=== PATIENT | male | born 1990 | race Two or more races ===

== ENCOUNTER 2020-03-16 02:21 | Observation (INO) | payer SELFPAY ==
[2020-03-16] MEDS ORDERED: Ondansetron 4 MG/2 ML SDV IVPUSH PRN (02:31)
[2020-03-16] MEDS: Lactated Ringers 1,000 ML IV SCH ×3 (02:35→23:40)
[2020-03-16] MEDS: HYDROmorphone 1 MG/ML Syringe IVPUSH PRN ×6 (02:40→20:04)
[2020-03-16] MEDS: Piperacillin/Tazobactam 3.375 GM in Sodium Chloride 0.9% 50 ML IV SCH ×4 (06:18→23:34)
[2020-03-16] MEDS ORDERED: Propofol 200 MG/20 ML SDV ONE (07:00)
[2020-03-16] MEDS ORDERED: Midazolam 1 MG/ML 2 ML SDV ONE (07:00)
[2020-03-16] MEDS ORDERED: fentaNYL 250 MCG/5 ML SDV ONE (07:00)
[2020-03-16] MEDS ORDERED: Glycopyrrolate 0.2 MG/ML SDV ONE (07:01)
[2020-03-16] MEDS ORDERED: Ketorolac 30 MG/ML SDV ONE (07:01)
[2020-03-16] MEDS ORDERED: Lidocaine 2% 5 ML SDV ONE (07:01)
[2020-03-16] MEDS ORDERED: Ondansetron 4 MG/2 ML SDV ONE (07:01)
[2020-03-16] MEDS ORDERED: Rocuronium Bromide 50 MG/5 ML Syringe ONE (07:01)
--- NOTE | 2020-03-16 08:37 | HP ---
DATE OF : 1990 PRIMARY CARE PHYSICIAN: None PCP HISTORY OF PRESENT ILLNESS: The patient is a pleasant 29-year-old gentleman who said that yesterday after work he started having some lower abdominal pain. This pain increased throughout the evening and migrated more to the right side. He went to his local ER in [place] for further evaluation. There he was found to have an elevated white cell count of 16. A CT scan was done that showed appendicoliths and mucosal thickening, inflammation surrounding the appendix suggestive of appendicitis. [place] then transferred patient here for laparoscopic appendectomy. The patient was placed on antibiotics. Here at [place], the patient says he is feeling okay. He says he still is having right lower abdominal pain. He said he had some slight nausea, but no emesis. He denies any fevers or chills. PAST MEDICAL HISTORY: Hypertension. CURRENT HOME MEDICATIONS: Lisinopril 10 mg p.o. daily. ALLERGIES: No known drug allergies. PAST SURGICAL HISTORY: None. FAMILY HISTORY: Father with multiple myeloma. SOCIAL HISTORY: The patient denies any tobacco use. Denies any illicit drug use. Only rare alcohol use. REVIEW OF SYSTEMS: A complete 12+ review of systems was done and was negative except for what is in the HPI and GASTROINTESTINAL: The patient says he does have loose stools off and on. PHYSICAL EXAMINATION: GENERAL: The patient is lying comfortably in the hospital bed. He is alert and oriented. No acute distress. VITAL SIGNS: Temperature is 98.1, pulse 76, blood pressure is 126/71, and saturating 94% on room air. LUNGS: Clear to auscultation bilaterally. No rhonchi or wheezing heard. HEART: Regular rhythm. No murmur appreciated. ABDOMEN: Soft, nondistended. He is tender in the right lower quadrant at McBurney's point. Some minimal guarding. No rebound tenderness. EXTREMITIES: No edema. NEUROLOGIC: Grossly no motor or neurologic deficits noted. LABORATORY DATA: Labs done at [facility] last night showed a white cell count of 16.0, hemoglobin of 14.9, platelet count of 296, glucose is 110. Sodium is 138, potassium 3.6, chloride is 102, bicarb of 23. BUN is 26, creatinine 0.96. COVID test was negative. IMAGING: Per HPI. ASSESSMENT AND PLAN: This is a pleasant 29-year-old gentleman with likely appendicitis. I went over with the patient what appendix was, went over risks, goals, and alternatives to laparoscopic appendectomy. Risks include, but not limited to bleeding, infection, abscess formation, injury to nearby structures, hernia formation, need to convert to open, and this could be something other than appendicitis, failure of the staple line. All the patient's questions were answered. He wishes to proceed with the surgery. The patient does wish to be full code. He is already on antibiotics. We will get him scheduled for OR when it is available. LISSA COSME /[id number] SAM
--- NOTE | 2020-03-16 09:15 | PCM.PREANE ---
Preanesthetic Assessment - Anesthesia/Transfusion/Family Hx Anesthesia History: No Prior Anesthesia Family History of Anesthesia Reaction: No Transfusion History: No Prior Transfusion(s) Intubation History: Unknown - Review of Systems General: No Symptoms Pulmonary: No Symptoms Cardiovascular: No Symptoms Gastrointestinal: Abdominal Pain Neurological: No Symptoms Other: Reports: None - Physical Assessment Vital Signs: Last Vital Signs Temp 36.7 C 03/16/20 07:40 Pulse 71 03/16/20 07:40 Resp 18 03/16/20 07:40 BP 112/70 03/16/20 07:40 Pulse Ox 96 03/16/20 07:40 Height: 6 ft 2 in Weight: 112.8 kg ASA Class: 2E Mental Status: Alert & Oriented x3 Airway Class: Mallampati = 1 Dentition: Reports: Normal Dentition Thyro-Mental Finger Breadths: 3 Mouth Opening Finger Breadths: 2 ROM/Head Extension: Full Lungs: Clear to Auscultation, Normal Respiratory Effort Cardiovascular: Regular Rate, Regular Rhythm - Lab Values: Laboratory Last Values SARS Virus RNA (PCR) NEGATIVE (NEGATIVE) 03/16/20 03:00 - Allergies Allergies/Adverse Reactions: Allergies Allergy/AdvReac Type Severity Reaction Status Date / Time No Known Allergies Allergy Verified 03/16/20 03:24 - Blood Blood Available: No - Anesthesia Plan Pre-Op Medication Ordered: None - Acknowledgements Anesthesia Type Planned: General Anesthesia Pt an Appropriate Candidate for the Planned Anesthesia: Yes Alternatives and Risks of Anesthesia Discussed w Pt/Guardian: Yes Pt/Guardian Understands and Agrees with Anesthesia Plan: Yes PreAnesthesia Questionnaire - Past Health History Medical/Surgical History: Denies Medical/Surgical History HEENT History: Reports: None Cardiovascular History: Reports: None Respiratory History: Reports: None Gastrointestinal History: Reports: Other (See Below) (acute appendicitis) Genitourinary History: Reports: None Musculoskeletal History: Reports: None Neurological History: Reports: None Psychiatric History: Reports: None Endocrine/Metabolic History: Reports: None (BMI 31.9) Hematologic History: Reports: None Dermatologic History: Reports: None - Past Surgical History HEENT Surgical History: Reports: None Cardiovascular Surgical History: Reports: None Respiratory Surgical History: Reports: None GI Surgical History: Reports: None Male Surgical History: Reports: None Endocrine Surgical History: Reports: None Neurological Surgical History: Reports: None Musculoskeletal Surgical History: Reports: None Dermatological Surgical History: Reports: None - SUBSTANCE USE Smoking Status *Q: Never Smoker Tobacco Use Within Last Twelve Months: Cigarettes Second Hand Smoke Exposure: No Number of Drinks Per Day: 1 Recreational Drug Use History: No - HOME MEDS Home Medications: Home Meds lisinopriL [Lisinopril] 10 mg PO DAILY 03/16/20 [History] - CURRENT (IN HOUSE) MEDS Current Meds: Current Medications Hydromorphone HCl (Dilaudid) 0.5 mg IVPUSH Q1H PRN PRN Reason: Abdominal Pain Last Admin: 03/16/20 08:06 Dose: 0.5 mg Documented by: Lactated Ringer's (Ringers, Lactated) 1,000 mls @ 150 mls/hr IV ASDIRECTED [facility] Last Admin: 03/16/20 02:35 Dose: 150 mls/hr Documented by: Piperacillin Sod/Tazobactam (Sod 3.375 gm/ Sodium Chloride) 50 mls @ 100 mls/hr IV Q6H [facility] Last Admin: 03/16/20 06:18 Dose: 100 mls/hr Documented by: Ondansetron HCl (Zofran) 4 mg IVPUSH Q4H PRN PRN Reason: Nausea Discontinued Medications Fentanyl (Sublimaze) Confirm Administered Dose 250 mcg .ROUTE .STK-MED ONE Stop: 03/16/20 07:01 Glycopyrrolate (Robinul) Confirm Administered Dose 0.8 mg .ROUTE .STK-MED ONE Stop: 03/16/20 07:02 Ketorolac Tromethamine (Toradol) Confirm Administered Dose 30 mg .ROUTE .STK-MED ONE Stop: 03/16/20 07:02 Lidocaine (Xylocaine-Mpf 2%) Confirm Administered Dose 5 ml .ROUTE .STK-MED ONE Stop: 03/16/20 07:02 Midazolam HCl (Versed 1 Mg/Ml) Confirm Administered Dose 2 mg .ROUTE .STK-MED ONE Stop: 03/16/20 07:01 Ondansetron HCl (Zofran) Confirm Administered Dose 4 mg .ROUTE .STK-MED ONE Stop: 03/16/20 07:02 Propofol (Diprivan 20 Ml) Confirm Administered Dose 200 mg .ROUTE .STK-MED ONE Stop: 03/16/20 07:01 Rocuronium [place] (Rocuronium [place]) Confirm Administered Dose 50 mg .ROUTE .[facility]-MED ONE Stop: 03/16/20 07:02
[2020-03-16] MEDS ORDERED: Octyl 2-Cyanoacrylate 1 Tube ONE (09:49)
[2020-03-16] MEDS ORDERED: Bupivacaine 0.5% 30 ML SDV ONE (09:49)
[2020-03-16] MEDS ORDERED: fentaNYL 100 MCG/2 ML SDV IVPUSH PRN (10:44)
[2020-03-16] MEDS ORDERED: Acetaminophen 1,000 MG in Premix Bag 1 BAG IV PRN (10:44)
[2020-03-16] MEDS ORDERED: HYDROmorphone 2 MG/ML Syringe ONE (10:48)
--- NOTE | 2020-03-16 11:36 | PCM.OPNOTE ---
- General Post-Op/Procedure Note Date of Surgery/Procedure: 03/16/20 Operative Procedure(s): Laparoscopic appendectomy Findings: Acute appendicitis. Dictation #[id number] Pre Op Diagnosis: Acute appendicitis Post-Op Diagnosis: Acute appendicitis Anesthesia Technique: General ET Tube Primary Surgeon: Arturo Tao Pathology: Appendix EBL in mLs: 5 Condition: Good Free Text/Narrative:: Intake & Output 03/15/20 03/16/20 03/16/20 22:59 06:59 14:59 Intake Total 328 Balance 328
--- NOTE | 2020-03-16 12:31 | PCM.POSTAN ---
POST ANESTHESIA ASSESSMENT - MENTAL STATUS Mental Status: Alert, Oriented - VITAL SIGNS Vital Signs: Last Vital Signs Temp 37.0 C 03/16/20 11:42 Pulse 70 03/16/20 12:27 Resp 7 L 03/16/20 12:27 BP 127/74 03/16/20 12:27 Pulse Ox 97 03/16/20 12:27 - RESPIRATORY Respiratory Status: Respiratory Rate WNL, Airway Patent, O2 Saturation Stable, Supplemental Oxygen - CARDIOVASCULAR CV Status: Pulse Rate WNL, Blood Pressure Stable - GASTROINTESTINAL GI Status: No Symptoms - PAIN Pain Score: 0 - POST OP HYDRATION Hydration Status: Adequate & Stable - OBSERVATIONS Free Text/Narrative:: No anesthesia problems
--- NOTE | 2020-03-16 19:18 | OR ---
SURGEON: POORNIMA MCKINNON MD DATE OF PROCEDURE: 03/16/2020 PROCEDURE PERFORMED: Laparoscopic appendectomy. PREOPERATIVE DIAGNOSIS: Acute appendicitis. POSTOPERATIVE DIAGNOSIS: Acute appendicitis. FINDINGS: Inflamed appendix. ANESTHESIA: General. PRIMARY SURGEON: Poornima Mckinnon MD ESTIMATED BLOOD LOSS: 5 mL. PATHOLOGY: Appendix. REASON FOR PROCEDURE: The patient is a pleasant 29-year-old gentleman who yesterday started having some lower abdominal pain that did not change the ride, he went to his local hospital. CT scan that showed an inflamed appendix and with elevated white cell count, he was transferred to our hospital for appendectomy. He was started on antibiotics. I did go over with the patient risks, goals, and alternatives to treatment of appendicitis including laparoscopic appendectomy. Risks include, but not limited to, bleeding, infection, abscess formation, need to convert to open, injury to nearby structures, hernia formation, this could be something other than appendix, failure of staple line. The patient understands and wished to proceed. OPERATIVE NARRATIVE: The patient was brought to the OR. He was prepped and draped in usual sterile fashion. SCDs were placed. The patient was on antibiotics from the floor. Huerta catheter was placed. Anesthesia provided by the Anesthesia team. After a time-out was performed, an infraumbilical incision was made. The umbilical stalk was grasped with Sylvester and slightly elevated and a Veress needle was placed, position was confirmed. With a needle pullback with no bladder sulcus and a positive drop test, insufflation was begun and a pneumoperitoneum was established. Now a 5 mm trocar was placed under direct visualization with a 5 mm scope into the abdominal cavity. The abdomen was then inspected. Now, another 5 mm trocar was placed in the suprapubic and another 10 in the left lower abdomen under direct visualization. The patient was then placed in the head down position, airplaned towards by myself. The appendix was then identified. It was indurated, but had no signs of gross perforation. I did kind of around on to itself. A small window was made at the base of the appendix and the mesoappendix was taken with a Harmonic scalpel. The appendix was removed with a blue load linear stapler from the base of the cecum. The appendix was removed into the Endo Catch bag. The operative spot was again inspected. There was good hemostasis. Staple line appeared intact. The rest of the abdomen was inspected. No other obvious pathology was seen. Now the operative site was slightly suction irrigated out with good hemostasis. Now the 10-mm trocar was removed. The fascial defect was closed using laparoscopic needle passer. Now, the pneumoperitoneum was released and the 5-mm trocars were removed. All the trocar sites were injected with remaining of the local and closed with 4-0 Monocryl and Dermabond. The patient was transferred to recovery room in stable condition, and sponge and needle counts were correct at the end of the case. LISSA / CARMELINA /[id number]
[2020-03-16] MEDS ORDERED: Benzonatate 100 MG Cap PO ONE (21:00)
[2020-03-16] MEDS ORDERED: Acetaminophen 325 MG Tab PO PRN (21:00)
--- NOTE | 2020-03-17 08:03 | PCM48HPAN ---
Post Anesthesia Note - EVALUATION WITHIN 48HRS OF ANESTHETIC Vital Signs in Normal Range: Yes Patient Participated in Evaluation: Yes Respiratory Function Stable: Yes Airway Patent: Yes Cardiovascular Function Stable: Yes Hydration Status Stable: Yes Pain Control Satisfactory: Yes Nausea and Vomiting Control Satisfactory: Yes Mental Status Recovered: Yes Vital Signs: Last Vital Signs Temp 37.0 C 03/17/20 04:00 Pulse 75 03/17/20 04:00 Resp 18 03/17/20 04:00 BP 120/75 03/17/20 04:00 Pulse Ox 94 L 03/17/20 04:00 - COMMENTS/OBSERVATIONS Free Text/Narrative:: Doing well. Ready for discharge.
[2020-03-17] MEDS: HYDROmorphone 1 MG/ML Syringe IVPUSH PRN (08:13)
--- NOTE | 2020-03-17 09:26 | DISCH ---
DATE OF DISCHARGE: 03/17/2020 PRIMARY CARE PHYSICIAN: Dea PCP PRIMARY DISCHARGE DIAGNOSIS: Acute appendicitis. SECONDARY DIAGNOSIS: Hypertension. PROCEDURE PERFORMED: Laparoscopic appendectomy on 03/16/2020. DISCHARGE MEDICATIONS: 1. Lisinopril 10 mg p.o. daily. 2. [place] 5/325 1 tablet q.6 hours p.r.n. for acute pain after laparoscopic appendectomy. REASON FOR ADMISSION: The patient is a pleasant 29-year-old gentleman who was having some abdominal pain, went to [facility] for evaluation and was found to have acute appendicitis and was transferred to [place] for a laparoscopic appendectomy. The patient was placed on antibiotics. HOSPITAL COURSE: The patient was admitted to the hospital and he continued on his antibiotics. He went to the OR for laparoscopic appendectomy on 03/16/2020. He tolerated the procedure well. He went back to the floor for recovery. At the time of discharge, the patient was tolerating a diet and passing flatus and felt ready to go home. The patient did have 1 episode of coughing at night and had couple of specks of blood in his sputum that has since resolved. I did go over with the patient that specks of blood could be irritation from the ET tube, however, if it continues, he needs to have followup with his primary care provider. I did discuss with the patient his surgery and answered all of his questions. DISCHARGE EXAMINATION: GENERAL: The patient is lying comfortably on hospital bed. He is alert and oriented, in no acute distress. VITAL SIGNS: Temperature is 98.6, pulse of 75, blood pressure is 120/75, saturating 94% on room air. LUNGS: Clear to auscultation bilaterally. No rhonchi or wheezing heard. HEART: Regular rate and rhythm. No murmur appreciated. ABDOMEN: Soft, nondistended. Incisions are clean, dry, and intact. Dermabond in place. Some very minimal incisional tenderness. DISCHARGE INSTRUCTIONS: I did go over with the patient that he may return to his normal diet. He should take it easy for the next 2 weeks to give his body time to recover. The patient may shower today. The patient to come back if he has any nausea, vomiting, fevers, chills, erythema or drainage from his incision sites. Otherwise, the patient is to followup with me in 2 weeks in the clinic. I did have a discussion with the patient that Anesthesia thought he might be getting on some sleep apnea. I went over with the patient that he should follow up with his primary care provider for potentially getting a sleep study test. The patient says he understands. The patient will be discharged later today. LISSA COSME /[id number] MTDD
== END 2020-03-17 10:55 | disposition home or self-care (01) ==
LOC: MW.SDS 02:21 → MW.MS 02:22 → MW.SDS 11:24 → MW.MS 11:25
PROVIDERS: ADMIT Surgery; ATTEND Surgery
DX: K35.80 Unspecified acute appendicitis (principal); I10 Essential (primary) hypertension; Z79.899 Other long term (current) drug therapy; Z01.812 Encounter for preprocedural laboratory examination; Z20.828 Contact with and (suspected) exposure to other viral communicable diseases
CPT/HCPCS: 44970; 87635; 88304; 96361; 96374; 96375; 96376; A9270; G0378; J1170; J1885; J2001; J2250; J2405; J2543; J2704; J3010; J3490; J7050; J7120; 00840; U0002